=== PATIENT | female | born 1955 | race Caucasian/White ===

== ENCOUNTER 2025-07-07 10:26 | Inpatient (IN) | payer OTHER ==
[~2025-07-07] VITALS: Ht 157.4 cm; Wt 92.1 kg
[~2025-07-07 10:26] MED LIST: ATARAX,VISTARIL50 MG PO; BRIN10TA PO; GLUCOPHAGE500 M1 PO; LORAZEPAM0.5 MG PO; PRISTIQ100 MG PO; TEGRETOL XR200 MG PO; VITAMIN D50000 I3 PO
[2025-07-07 10:45] VITALS: BP 130/78
[2025-07-07] MEDS ORDERED: METFORMIN HYD1000 MG PO (11:08)
[2025-07-07 11:51] LABS: BASO # 0.0 10*3/uL (0.0-0.1); BASO % 0.1 % (0.0-1.0); EOS # 0.3 10*3/uL (0.0-0.4); EOS % 2.3 % (1.0-4.0); MEAN CELL VOLUME 90.9 fl (81.0-99.0); MEAN CORPUSCULAR HGB 30.7 pg (27.0-31.0); MEAN PLATELET VOLUME 9.9 fl (9.6-12.3); MONO # 0.8 10*3/uL (0.1-1.0); MONO % 5.9 % (3.0-9.0); NEUT # 9.2 10*3/uL (2.3-7.9); NEUT % 72.1 % (47.0-73.0); NUCLEATED RED BLOOD CELL 0.0 % (0.0-0.0); NUCLEATED RED BLOOD CELL 0.0 10*3/uL (0.0-0.0); PLATELET COUNT AUTOMATED 291 10*3/uL (130-400); RED CELL DISTRI WIDTH 13.2 % (0-14.5)
[2025-07-07 13:04] LABS: BILIRUBIN Negative (Negative); BLOOD Trace-Intact (Negative); CLARITY Turbid (Clear); COLOR Yellow (Yellow); KETONE Trace (Negative); LEUKO ESTERASE 3+ (Negative); NITRITE Negative (Negative); PH 6.0 (4.5-8.0); SPECIFIC GRAVITY 1.020 (1.001-1.030); UROBILINOGEN 1.0 E.U./dl (0.0-1.0)
[2025-07-07 13:05] LABS: BUN 15 mg/dl (9-23)
[2025-07-07 13:07] LABS: URINE AMPHETAMINES Negative (1000ng/ml); URINE BARBITURATES Negative (200ng/ml); URINE BENZODIAZEPINES Negative (200ng/ml); URINE CANNABINOIDS (THC) Negative (50ng/ml); URINE COCAINE Negative (300ng/ml); URINE METHADONE Negative (300ng/ml); URINE OPIATES Negative (300ng/ml); URINE PHENCYCLIDINE Negative (25ng/ml)
[2025-07-07 13:11] LABS: BACTERIA 4+; WBC TNTC wbc/hpf (0-5)
[2025-07-07 13:18] LABS: ETHYL ALCOHOL < 3.0 mg/dl (<3)
[2025-07-07] MEDS ORDERED: VITAMIN D325 MCG PO (13:53)
[2025-07-07] MEDS ORDERED: DAILY VALUE1 EACH PO (13:54)
[2025-07-07] MEDS ORDERED: BUPROPION HYDR150 M3 PO (13:54)
[2025-07-07] MEDS ORDERED: REMERON15 M2 PO (13:55)
[2025-07-07] MEDS ORDERED: ATIVAN1 MG PO (13:56)
[2025-07-07] MEDS ORDERED: NORVASC2.5 MG PO (13:57)
[2025-07-07] MEDS ORDERED: LIPITOR10 MG PO (13:57)
[2025-07-07] MEDS ORDERED: INPEN (FOR HUM1 EACH SQ (14:00)
[2025-07-07 14:08] VITALS: BP 113/55
[2025-07-07] MEDS ORDERED: ACETAMINOPHEN 325 MG TAB PO PRN (14:10)
[2025-07-07] MEDS ORDERED: MG-AL HYDROXIDE/SIMETICONE 30 ML UDC PO PRN (14:10)
[2025-07-07] MEDS ORDERED: TRELEGY ELLIPT1 EACH INH (14:45)
[2025-07-07] MEDS ORDERED: DEXTROSE 50% 25 GM/50 ML VIAL IV PRN (19:05)
[2025-07-07 20:00] VITALS: BP 130/74
[2025-07-07] MEDS ORDERED: NICOTINE POLACRILEX 4 MG GUM PO PRN (20:15)
[2025-07-07] MEDS ORDERED: VORTIOXETINE HYDROBROMIDE 10 MG TAB PO SCH (22:00)
[2025-07-07] MEDS ORDERED: LORazepam 1 MG TAB PO SCH (22:00)
[2025-07-07] MEDS ORDERED: INSULIN LISPRO 1 UNIT/0.01 ML SQ SCH (22:00)
[2025-07-07] MEDS ORDERED: VENT7GM INH (22:08)
[2025-07-08 07:02] LABS: LDL CHOLESTEROL 72.0 mg/dL (9-159)
[2025-07-08 08:19] VITALS: BP 108/82
[2025-07-08] MEDS ORDERED: VILANTER INH SCH (09:00)
[2025-07-08] MEDS ORDERED: MULTIVITAMIN 1 TAB TAB PO SCH (09:00)
[2025-07-08] MEDS ORDERED: ATORVASTATIN CALCIUM 10 MG TAB PO SCH (09:00)
[2025-07-08] MEDS ORDERED: UMECLIDIN INH SCH (09:00)
[2025-07-08] MEDS ORDERED: Vitamin D 1,000 IU TAB (25 MCG) PO SCH (09:00)
[2025-07-08] MEDS ORDERED: FLUTICASONE INH SCH (09:00)
[2025-07-08] MEDS ORDERED: CYANOCOBALAMIN 1,000 MCG/ML VIAL IM SCH (12:45)
[2025-07-08] MEDS ORDERED: AZITHROMYCIN 250 MG TAB PO ONE (13:05)
[2025-07-08 20:00] VITALS: BP 124/78
[2025-07-09 08:22] VITALS: BP 131/58
[2025-07-09 08:34] VITALS: BP 131/58
[2025-07-09] MEDS ORDERED: LORazepam 0.5 MG TAB PO SCH (09:00)
[2025-07-09] MEDS ORDERED: AZITHROMYCIN 250 MG TAB PO SCH (10:00)
[2025-07-09 19:03] VITALS: BP 124/61
[2025-07-09] MEDS ORDERED: LORazepam 1 MG TAB PO SCH (21:00)
[2025-07-09] MEDS ORDERED: NYSTATIN 15 GM BOT T SCH (22:55)
[2025-07-10 08:00] VITALS: BP 140/68
[2025-07-10 20:00] VITALS: BP 121/62
[2025-07-10] MEDS ORDERED: VORTIOXETINE HYDROBROMIDE 20 MG TAB PO SCH (21:00)
[2025-07-11 08:27] VITALS: BP 113/49
[2025-07-11] MEDS ORDERED: LORAZEPAM1 MG PO (09:02)
[2025-07-11] MEDS ORDERED: TRINTELLIX20 MG PO (09:02)
[2025-07-11] MEDS ORDERED: LORAZEPAM0.5 M1 PO (09:02)
[2025-07-11] MEDS ORDERED: B121000 MCG/1 IM (09:02)
[2025-07-11] MEDS ORDERED: Vitamin D (1,000 UNI PO (09:02)
[2025-07-11] MEDS ORDERED: AVPAK AZITHROM250 M1 PO (09:25)
== END 2025-07-11 10:52 | disposition home or self-care (01) | DRG 885 ==
LOC: ED 10:26 → EDHOLD 13:07 → 3N 13:07
PROVIDERS: Emergency Medicine; ADMIT Psychiatry & Neurology Psychiatry; ATTEND Psychiatry & Neurology Psychiatry
PROC: GZHZZZZ Group Psychotherapy (ICD-10-PCS; principal; 2025-07-07)
DX: F31.81 Bipolar II disorder (principal); E11.65 Type 2 diabetes mellitus with hyperglycemia; J15.5 Pneumonia due to Escherichia coli; E78.00 Pure hypercholesterolemia, unspecified; E66.9 Obesity, unspecified; D72.829 Elevated white blood cell count, unspecified; I10 Essential (primary) hypertension; E55.9 Vitamin D deficiency, unspecified; Z88.8 Allergy status to other drugs, medicaments and biological substances; Z80.9 Family history of malignant neoplasm, unspecified; Z82.3 Family history of stroke; Z79.4 Long term (current) use of insulin; Z68.37 Body mass index [BMI] 37.0-37.9, adult